=== PATIENT | male | born 1980 ===

== ENCOUNTER 2017-09-17 11:05 | Emergency (ER) | payer OTHER, SELFPAY ==
[2017-09-17 11:05] VITALS: BMI 28.8
[2017-09-17 11:23] VITALS: BP 134/84; PULSE 94; RESP 18; TEMP 98; O2SAT 99
[2017-09-17] MEDS ORDERED: Sodium Chloride 0.9% 1,000 ML IV STA (11:40)
[2017-09-17 12:00] LABS: BASO % 0.4 % (0.0-2.0); EOS # 0.3 K/uL (0.0-0.7); EOS % 2.9 % (0.0-4.0); HEMATOCRIT 45.5 % (35.0-51.0); LYMPH # 1.4 K/uL (1.0-4.3); LYMPH % 14.1 % (20.0-40.0); MEAN CELL VOLUME 90.2 fl (80.0-94.0); MEAN CORPUSCULAR HEMOGLOBIN 29.9 pg (27.0-31.0); MEAN CORPUSCULAR HGB CONC 33.1 g/dL (33.0-37.0); MEAN PLATELET VOLUME 9.3 fl (7.2-11.7); MONO # 1.1 K/uL (0.0-0.8); MONO % 11.1 % (0.0-10.0); NEUT # 6.9 K/uL (1.8-7.0); NEUT % 71.5 % (50.0-75.0); NRBC % 0.1 % (0.0-0.0); RED CELL DISTRIBUTION WIDTH 13.8 % (11.5-14.5); WHITE BLOOD COUNT 9.6 K/uL (4.8-10.8)
[2017-09-17 12:10] LABS: ALKALINE PHOSPHATASE 110 U/L (38-126); ALT/SGPT 57 U/L (21-72); AST/SGOT 29 U/L (17-59); BLOOD UREA NITROGEN 19 mg/dl (9-20); CALCIUM 9.5 mg/dL (8.4-10.2); CARBON DIOXIDE 27 mmol/L (22-30); CHLORIDE 105 mmol/L (98-107); GFR AFRICAN-AMERICAN > 60; GLUCOSE,RANDOM 93 mg/dL (75-110); POTASSIUM 4.6 MMOL/L (3.6-5.0); SODIUM 141 mmol/l (132-148); TOTAL PROTEIN 7.8 G/DL (6.3-8.2)
[2017-09-17 12:12] LABS: URINE BILIRUBIN NEGATIVE (NEGATIVE); URINE BLOOD NEGATIVE (NEGATIVE); URINE COLOR YELLOW (YELLOW); URINE GLUCOSE (UA) NEG (Normal); URINE KETONE NEGATIVE (NEGATIVE); URINE LEUKOCYTE ESTERASE NEG Leu/uL (Negative); URINE PROTEIN 30 mg/dL (NEGATIVE); WBC URINE 1 /hpf (0-5)
[2017-09-17 12:13] LABS: ALB/GLOB RATIO 1.4 (1.0-2.1)
--- NOTE | 2017-09-17 12:27 | CT ---
PROCEDURE: CT Abdomen and Pelvis without intravenous contrast HISTORY: flank pain, hematuria COMPARISON: None. TECHNIQUE: Helical CT of the abdomen and pelvis was performed without oral or intravenous contrast as per referring physician request.. Contrast Dose: None Radiation dose: Total exam DLP = 956.37 mGy-cm. This CT exam was performed using one or more of the following dose reduction techniques: Automated exposure control, adjustment of the mA and/or kV according to patient size, and/or use of iterative reconstruction technique. FINDINGS: LOWER THORAX: Unremarkable. LIVER: Unremarkable. No gross lesion or ductal dilatation. GALLBLADDER AND BILE DUCTS: Unremarkable. PANCREAS: Unremarkable. No gross lesion or ductal dilatation. SPLEEN: Unremarkable. ADRENALS: Unremarkable. No mass. KIDNEYS AND URETERS: 2.7 mm calculus identified at the left ureteral pelvic vesicle junction or even the within the urinary bladder lumen with residual mild left hydroureteronephrosis remaining including left perinephric reaction. No additional radiodense urolithiasis is appreciated bilaterally. No right-sided obstructive uropathy. VASCULATURE: Unremarkable. No aortic aneurysm. BOWEL: Unremarkable. No obstruction. No gross mural thickening. APPENDIX: Unremarkable. Normal appendix. PERITONEUM: Unremarkable. No free fluid. No free air. LYMPH NODES: Unremarkable. No enlarged lymph nodes. BLADDER: Unremarkable. REPRODUCTIVE: Unremarkable. BONES: No acute fracture. OTHER FINDINGS: None. IMPRESSION: There is mild residual left sided obstructive uropathy is appreciated the left kidney and ureter to 2.7 mm calculus now identified either at the distal left UPJ or possibly in the urinary bladder lumen. No additional radiodense urolithiasis bilaterally. No right-sided obstructive uropathy. Please see discussion above.
--- NOTE | 2017-09-17 13:17 | ED PDOC ---
HPI: Male Pain Time Seen by Provider: 09/17/17 11:09 Chief Complaint (Nursing): Male Genitourinary Chief Complaint (Provider): LEft flank pain radiating to the groin History Per: Patient History/Exam Limitations: no limitations Onset/Duration Of Symptoms: Hrs Current Symptoms Are (Timing): Still Present Severity: Moderate Pain Scale Rating Of: 6 Quality Of Discomfort: Sharp Associated Symptoms: denies: Fever, Chills, Nausea, Vomiting Alleviating Factors: None Additional Complaint(s): No similar in the past. No fever/chills. Past Medical History Reviewed: Historical Data, Nursing Documentation, Vital Signs Vital Signs: Last Vital Signs Temp 98 F 09/17/17 11:20 Pulse 94 H 09/17/17 11:20 Resp 18 09/17/17 11:20 BP 134/84 09/17/17 11:20 Pulse Ox 99 09/17/17 11:20 - Medical History PMH: No Chronic Diseases Denies: Chronic Kidney Disease - Surgical History Surgical History: No Surg Hx - Family History Family History: States: No Known Family Hx - Living Arrangements Living Arrangements: With Family - Home Medications Home Medications: Ambulatory Orders Medication Instructions Recorded Multivitamin 1 tab PO DAILY 06/30/14 Acetaminophen/Oxycodone Hydr 1 mg PO Q6H PRN 07/02/14 [Percocet 325 mg-5 mg] Docusate Sodium [Colace] 1 mg PO Q8H PRN 07/02/14 Ciprofloxacin [Cipro] 500 mg PO BID #10 tab 09/17/17 Tamsulosin [Flomax] 0.4 mg PO DAILY #10 cap 09/17/17 oxyCODONE/Acetaminophen [Percocet 1 ea PO Q6H PRN #5 tab 09/17/17 5/325 mg Tab] - Allergies Allergies/Adverse Reactions: Allergies Allergy/AdvReac Type Severity Reaction Status Date / Time No Known Allergies Allergy Verified 09/17/17 11:20 Review of Systems ROS Statement: Except As Marked, All Systems Reviewed And Found Negative Constitutional: Negative for: Fever, Chills Respiratory: Negative for: Cough, Shortness of Breath Gastrointestinal: Positive for: Abdominal Pain Physical Exam - Reviewed Nursing Documentation Reviewed: Yes Vital Signs Reviewed: Yes - Physical Exam Appears: Positive for: Well, Non-toxic, No Acute Distress Head Exam: Positive for: ATRAUMATIC, NORMAL INSPECTION, NORMOCEPHALIC Skin: Positive for: Normal Color, Warm, DRY Eye Exam: Positive for: Normal appearance ENT: Positive for: Normal ENT Inspection Neck: Positive for: Normal, Painless ROM Cardiovascular/Chest: Positive for: Regular Rate, Rhythm Respiratory: Positive for: Normal Breath Sounds. Negative for: Accessory Muscle Use Back: Positive for: Normal Inspection Extremity: Positive for: Normal ROM Neurologic/Psych: Positive for: Alert, Oriented - Laboratory Results Result Diagrams: 09/17/17 11:55 09/17/17 11:55 - ECG O2 Sat by Pulse Oximetry: 99 Pulse Ox Interpretation: Normal Disposition - Clinical Impression Clinical Impression: Kidney stone - Patient ED Disposition Is Patient to be Admitted: No Counseled Patient/Family Regarding: Diagnosis, Need For Followup, Rx Given - Disposition Disposition: Routine/Home Disposition Time: 13:16 Condition: GOOD Prescriptions: Ciprofloxacin [Cipro] 500 mg PO BID #10 tab oxyCODONE/Acetaminophen [Percocet 5/325 mg Tab] 1 ea PO Q6H PRN #5 tab PRN Reason: Pain, Severe (8-10) Tamsulosin [Flomax] 0.4 mg PO DAILY #10 cap Instructions: Kidney Stones (ED) Print Language: KOREAN
== END 2017-09-17 13:54 | disposition home or self-care (01) ==
LOC: H.ER 11:05
DX: N20.0 Calculus of kidney (principal); R10.9 Unspecified abdominal pain
CPT/HCPCS: 74176; 80053; 81003; 85025; 87086; 96360; 99283; J1885; J7040

== ENCOUNTER 2017-09-20 15:16 | Emergency (ER) | payer OTHER ==
[2017-09-20 15:16] VITALS: BMI 28.8
[2017-09-20 15:53] VITALS: RESP 16
[2017-09-20] MEDS ORDERED: Sodium Chloride 0.9% 1,000 ML IV STA (16:16)
[2017-09-20] MEDS ORDERED: Morphine 4 MG/ML VIAL ONE (16:29)
--- NOTE | 2017-09-20 16:39 | ED PDOC ---
HPI: Back Time Seen by Provider: 09/20/17 16:00 Chief Complaint (Nursing): Back Pain Chief Complaint (Provider): back pain/kidney stones History Per: Patient Onset/Duration Of Symptoms: Days (4) Severity: Moderate Previous Symptoms: Back Pain Associated Symptoms: None Additional History Per: Patient Additional Complaint(s): 36 yo m with history of recent diagnosis of kidney stone on L ( was in the ER a few days ago, got CT abd and pelvis, discharged w medications) states that this am pain got worse on left flank. denies fever. but has nausea no vomiting. no diarrhea. denies dysuria. Past Medical History Vital Signs: Last Vital Signs Temp 98.0 F 09/20/17 15:48 Pulse 89 09/20/17 15:48 Resp 16 09/20/17 15:48 BP 132/70 09/20/17 15:48 Pulse Ox 97 09/20/17 15:48 - Medical History PMH: Kidney Stones Denies: Chronic Kidney Disease - Surgical History Surgical History: No Surg Hx - Family History Family History: States: No Known Family Hx - Social History Current smoker - smoking cessation education provided: No Alcohol: None Drugs: Denies - Home Medications Home Medications: Ambulatory Orders Medication Instructions Recorded Multivitamin 1 tab PO DAILY 06/30/14 Acetaminophen/Oxycodone Hydr 1 mg PO Q6H PRN 07/02/14 [Percocet 325 mg-5 mg] Docusate Sodium [Colace] 1 mg PO Q8H PRN 07/02/14 Ciprofloxacin [Cipro] 500 mg PO BID #10 tab 09/17/17 Tamsulosin [Flomax] 0.4 mg PO DAILY #10 cap 09/17/17 oxyCODONE/Acetaminophen [Percocet 1 ea PO Q6H PRN #5 tab 09/17/17 5/325 mg Tab] Docusate Sodium [Colace] 100 mg PO BID PRN #10 capsule 09/20/17 - Allergies Allergies/Adverse Reactions: Allergies Allergy/AdvReac Type Severity Reaction Status Date / Time No Known Allergies Allergy Verified 09/20/17 15:48 Review of Systems ROS Statement: Except As Marked, All Systems Reviewed And Found Negative Musculoskeletal: Positive for: Other (left flank pain) Physical Exam - Reviewed Nursing Documentation Reviewed: Yes - Physical Exam Appears: Positive for: Well, Uncomfortable Head Exam: Positive for: ATRAUMATIC, NORMAL INSPECTION, NORMOCEPHALIC Skin: Positive for: Normal Color, Warm, Dry Neck: Positive for: Normal, Painless ROM Cardiovascular/Chest: Positive for: Regular Rate, Rhythm Respiratory: Positive for: Normal Breath Sounds Gastrointestinal/Abdominal: Positive for: Normal Exam, Bowel Sounds, Soft Extremity: Positive for: Normal ROM Neurologic/Psych: Positive for: Alert, Oriented - Laboratory Results Result Diagrams: 09/20/17 16:29 09/20/17 16:29 - ECG O2 Sat by Pulse Oximetry: 97 Medical Decision Making Medical Decision Making: abdominal pain assess location of kidney stone previously diagnosed. labs, urine, pt already on abx and flomax and pain meds and referred to urologist. Time: 16:34 Abdominal X-ray FINDINGS: BOWEL: Normal. No obstruction. Prominent amount of retained colonic stool. No free air. BONES: Normal. OTHER FINDINGS: Known left ureterovesicular junction region calculus not visualized. IMPRESSION: Prominent amount of retained colonic stool. Upon reevaluation, patient feels better and tolerates PO. He is to be discharged home. aware of constipation and need for colace. Given instructions to continue medications previously given and to follow up with urologist. Return is symptoms persist or worsen. Disposition - Clinical Impression Clinical Impression: Kidney stone, Constipation - Patient ED Disposition Is Patient to be Admitted: No Counseled Patient/Family Regarding: Studies Performed, Diagnosis, Need For Followup - Disposition Referrals: [facility] [Outside] [facility] [Outside] Disposition: Routine/Home Disposition Time: 17:00 Condition: IMPROVED Additional Instructions: follow up with urologist as previously referred return to the ED with any worsening or concerning symptoms Prescriptions: Docusate Sodium [Colace] 100 mg PO BID PRN #10 capsule PRN Reason: Constipation Instructions: Constipation (ED), Kidney Stones (ED) Forms: [employer] (Citizen [place]) Print Language: TAJIK
[2017-09-20 16:40] LABS: BASO # 0.1 K/uL (0.0-0.2); BASO % 0.4 % (0.0-2.0); EOS # 0.1 K/uL (0.0-0.7); EOS % 1.3 % (0.0-4.0); HEMATOCRIT 45.2 % (35.0-51.0); LYMPH % 8.5 % (20.0-40.0); MEAN CORPUSCULAR HEMOGLOBIN 29.3 pg (27.0-31.0); MEAN CORPUSCULAR HGB CONC 32.6 g/dL (33.0-37.0); MEAN PLATELET VOLUME 9.9 fl (7.2-11.7); MONO # 0.9 K/uL (0.0-0.8); MONO % 7.2 % (0.0-10.0); NEUT # 9.7 K/uL (1.8-7.0); NEUT % 82.6 % (50.0-75.0); PLATELET COUNT 178 K/uL (130-400); RED CELL DISTRIBUTION WIDTH 13.9 % (11.5-14.5); WHITE BLOOD COUNT 11.7 K/uL (4.8-10.8)
[2017-09-20 16:48] LABS: ALB/GLOB RATIO 1.3 (1.0-2.1); ALKALINE PHOSPHATASE 114 U/L (38-126); ALT/SGPT 53 U/L (21-72); AST/SGOT 36 U/L (17-59); BILIRUBIN,TOTAL 0.8 mg/dl (0.2-1.3); BLOOD UREA NITROGEN 21 mg/dl (9-20); CALCIUM 9.6 mg/dL (8.4-10.2); CARBON DIOXIDE 25 mmol/L (22-30); CHLORIDE 101 mmol/L (98-107); GFR AFRICAN-AMERICAN > 60; GLUCOSE,RANDOM 102 mg/dL (75-110); POTASSIUM 4.2 MMOL/L (3.6-5.0); SODIUM 137 mmol/l (132-148); TOTAL PROTEIN 8.6 G/DL (6.3-8.2)
--- NOTE | 2017-09-20 16:55 | RAD ---
HISTORY: stone, persistent pain COMPARISON: CT scan of the abdomen and pelvis dated of 09/17/2017. FINDINGS: BOWEL: Normal. No obstruction. Prominent amount of retained colonic stool. No free air. BONES: Normal. OTHER FINDINGS: Known left ureterovesicular junction region calculus not visualized. IMPRESSION: Prominent amount of retained colonic stool.
[2017-09-20 16:57] LABS: URINE BILIRUBIN NEGATIVE (NEGATIVE); URINE BLOOD NEGATIVE (NEGATIVE); URINE COLOR YELLOW (YELLOW); URINE GLUCOSE (UA) NEG (Normal); URINE KETONE NEGATIVE (NEGATIVE); URINE LEUKOCYTE ESTERASE NEG Leu/uL (Negative); URINE PROTEIN 100 mg/dL (NEGATIVE); URINE UROBILINOGEN 0.2-1.0 mg/dL (0.2-1.0); WBC URINE 2 /hpf (0-5)
[2017-09-20 17:39] VITALS: BP 128/78; PULSE 78; TEMP 97
[2017-09-20 17:51] LABS: EOSINOPHIL 2 % (0-7); NEUTROPHIL 78 % (42-75); TOTAL CELLS COUNTED 100
[2017-09-21 17:26] VITALS: O2SAT 97
== END 2017-09-20 17:39 | disposition home or self-care (01) ==
LOC: H.ER 15:16
DX: K59.00 Constipation, unspecified (principal); N20.0 Calculus of kidney; Z87.442 Personal history of urinary calculi
CPT/HCPCS: 74000; 80053; 81003; 85025; 87086; 99282; J1885; J2270; J2405; J7040